=== PATIENT | female | born 1965 | race Caucasian/White ===

== ENCOUNTER 2019-10-09 08:54 | Emergency (ER) | payer OTHER ==
[2019-10-09 09:26] VITALS: BP 123/75; PULSE 77; TEMP 97; BMI 26.9
[2019-10-09] MEDS ORDERED: ACETAMINOPHEN 500 MG TABLET (FP) PO ONE (09:53)
[2019-10-09] MEDS ORDERED: ACETAMINOPHEN 500 MG TABLET (FP) ONE (09:57)
--- NOTE | 2019-10-09 10:00 | PDOC ---
History of Present Illness - General Chief Complaint: Injury Stated Complaint: INJURY Time Seen by Provider: 10/09/19 09:47 History Source: Patient Exam Limitations: No Limitations - History of Present Illness Initial Comments: 10/09/19 09:54 HISTORY OF PRESENT ILLNESS: 54-year-old LHD woman presents to the emergency department for evaluation of right thumb pain status post being struck with a basketball on 10/08. Patient reports she tried to catch the ball which hit her on the thumb causing her thumb to hyperextend on her right hand. Patient noted increased pain and woke up this morning with bruising to the base of the thumb. Patient has not taken any pain medication to arrival. No recent travel or sick contacts. PAST MEDICAL HISTORY: Denies past medical history SURGICAL HISTORY: Denies ALLERGIES: Codeine REVIEW OF SYSTEMS General/Constitutional: Denies fever or chills. Denies weakness, weight change. HEENT: Denies change in vision. Denies ear pain or discharge. Denies sore throat. Cardiovascular: Denies chest pain or shortness of breath. Respiratory: Denies cough, wheezing, or hemoptysis. Gastrointestinal: Denies nausea, vomiting, diarrhea or constipation. Denies rectal bleeding. Genitourinary: Denies dysuria, frequency, or change in urination. Musculoskeletal: See HPI Skin and breasts: Denies rash or easy bruising. Neurologic: Denies headache, vertigo, loss of consciousness, or loss of sensation. Psychiatric: Denies depression or anxiety. Endocrine: Denies increased thirst. Denies abnormal weight change. Hematologic/Lymphatic: Denies anemia, easy bleeding, or history of blood clots. Allergic/Immunologic: Denies hives or skin allergy. Denies latex allergy. PHYSICAL EXAM General Appearance: Well-appearing, appropriately dressed. No apparent distress , no intoxication. Vascular Pulses: Radial (R): 2+, radial (L): 2+ Musculoskeletal/Extremities: Normal inspection. FROM of all extremities, normal capillary refill. Pelvis Stable. No CVA tenderness. No tenderness to extremities, pedal edema, swelling, erythema or deformity. Ecchymosis present to the base of the thumb on the volar aspect extending into the thenar space circumferentially to the dorsum of the hand at the base of the right thumb. Able to flex and extend thumb against resistance without difficulty. No palpable crepitus, deformity or step-off noted. Neurovascularly intact. Integumentary: See musculoskeletal assessment 10/09/19 10:37 Past History - Past Medical History Allergies/Adverse Reactions: Allergies Allergy/AdvReac Type Severity Reaction Status Date / Time codeine Allergy Verified 10/09/19 09:26 Home Medications: Ambulatory Orders Albuterol 2.5/Ipratropium 0.5 [Duoneb -] 1 neb NEB Q4H 10/09/19 Atorvastatin Ca [Lipitor] 40 mg PO HS 10/09/19 Calcium Carb, Citrate/Vit D3 [Calcium + D3 ER Tablet] 1 each PO DAILY 10/09/19 Cyclobenzaprine HCl 5 mg PO DAILY 10/09/19 Diazepam [Valium] 5 mg PO BID 10/09/19 Fluticasone Propionate [Flovent Diskus] 50 mcg IH DAILY 10/09/19 Gabapentin [Neurontin] 300 mg PO TID 10/09/19 Hydrochlorothiazide 25 mg PO DAILY 10/09/19 Hydrocodone/Acetaminophen [Hydrocodone-Acetamin 5-300 mg] 1 tab PO Q4H PRN 10/09 Lisinopril [Prinivil -] 40 mg PO DAILY 10/09/19 Nabumetone [Relafen -] 500 mg PO BID 10/09/19 Naproxen Sodium [Naproxen Sodium Cr] 500 mg PO BID 10/09/19 Pantoprazole Sodium [Protonix -] 20 mg PO DAILY 10/09/19 Zolpidem Tartrate [Ambien] 10 mg PO HS PRN 10/09/19 COPD: No HTN: Yes Hypercholesterolemia: Yes - Psycho Social/Smoking Cessation Hx Smoking History: Never smoked *Physical Exam - Vital Signs Last Vital Signs Temp Pulse Resp BP Pulse Ox 97 F L 77 18 123/75 98 10/09/19 09:23 10/09/19 09:23 10/09/19 09:23 10/09/19 09:23 10/09/19 09:23 ED Treatment Course - RADIOLOGY Radiology Studies Ordered: Category Date Time Status HAND- RIGHT [RAD] Stat Radiology 10/09/19 09:53 Ordered Medical Decision Making - Medical Decision Making 10/09/19 09:58 A/P: 54-year-old woman with hyperextension injury of her right thumb Ecchymosis present to the base of the right thumb extending circumferentially through the thenar space. Full flexion and extension of the thumb against resistance Neurovascularly intact Tylenol 1 g orally now X-ray of the right thumb Reassess 10/09/19 10:27 X-rays read by me: No acute fractures or dislocations present. Marty wrap discharge home I discussed the physical exam findings, ancillary test results and final diagnoses with the patient. I answered all of the patient's questions. The patient was satisfied with the care received and felt comfortable with the discharge plan and treatment plan. The patient will call their primary care physician within 24 hours to arrange follow-up and will return to the Emergency Department with any new, persistent or worsening symptoms. Discharge - Discharge Information Problems reviewed: Yes Clinical Impression/Diagnosis: Pain of right thumb Condition: Stable Disposition: HOME - Admission No - Follow up/Referral Referrals: ON STAFF,NOT [Primary Care Provider] - Richard Beal DO [Staff Physician] - - Patient Discharge Instructions Additional Instructions: Keep Marty wrap on your hand to help provide some stability and pain relief. You may apply ice to your hand for 20 minutes at a time to help relieve pain. Take Tylenol as directed by videotape sales representative's instructions as needed for pain. You been given a referral for an orthopedic doctor. If symptoms do not improve in the next 3 to 4 days call to schedule reevaluation. Return to emergency department for any new or worsening symptoms. Thank you very much for choosing us to provide your emergent health care needs. - Post Discharge Activity Work/Back to School Note: Back to Work
== END 2019-10-09 10:39 | disposition home or self-care (01) ==
LOC: JER 08:54 → JERFT 08:54
DX: M79.644 Pain in right finger(s) (principal); I10 Essential (primary) hypertension; E78.00 Pure hypercholesterolemia, unspecified; W21.05XA Struck by basketball, initial encounter; Y93.89 Activity, other specified; Y92.89 Other specified places as the place of occurrence of the external cause; Z88.6 Allergy status to analgesic agent
CPT/HCPCS: 73130-TC-RT-FY; 99281-25